=== PATIENT | female | born 1995 | race Caucasian/White ===

== ENCOUNTER 2017-03-12 00:02 | Emergency (ER) | payer BC ==
[2017-03-12] MEDS ORDERED: LIDOCAINE 2% VISCOUS SOLN 20 ML UDCUP PO ONE (00:49)
[2017-03-12] MEDS ORDERED: METOCLOPRAMIDE HCL ORAL SOLN 10 MG/10 ML UDCUP PO ONE (00:49)
[2017-03-12] MEDS ORDERED: MAG HYDROX/AL HYDROX/SIMETH SUSP 30 ML UDCUP PO ONE (00:49)
--- NOTE | 2017-03-12 00:50 | ER Document Report ---
ED GI/ - General Mode of Arrival: Ambulatory Information source: Patient TRAVEL OUTSIDE OF THE [place] IN LAST 30 DAYS: No - HPI Patient complains to provider of: Abdominal pain Similar symptoms previously: No Recently seen / treated by doctor: No - General Chief Complaint: Abdominal Pain Stated Complaint: ABDOMINAL PAIN Time Seen by Provider: 03/12/17 00:36 - HPI Notes: Patient is a 21 year old female presenting to the emergency department for upper abdominal pain. Patient states that her pain has been onset x4 days. Patient states that her pain is achy and is exacerbated with laying down and with drinking milk. Patient states that she hasn't taken any anti-acids or other medications to help relieve her symptoms. Patient denies any nausea, vomiting, or diarrhea. Patient states she has bad anxiety and does not like taking medications. (ADALID HWANG) - Related Data Allergies/Adverse Reactions: clindamycin Allergy (Verified 03/12/17 00:12) Iodinated Contrast- Oral and IV Dye Allergy (Verified 03/12/17 00:12) latex Allergy (Verified 03/12/17 00:12) ondansetron [From Zofran (as hydrochloride)] Allergy (Verified 03/12/17 00:12) Penicillins Allergy (Verified 03/12/17 00:12) prednisone Allergy (Verified 03/12/17 00:12) sulfamethoxazole [From Bactrim] Allergy (Verified 03/12/17 00:12) trimethoprim [From Bactrim] Allergy (Verified 03/12/17 00:12) Past Medical History - General Information source: Patient - Social History Smoking Status: Current Every Day Smoker Chew tobacco use (# tins/day): No Smoking Education Provided: No Frequency of alcohol use: None Drug Abuse: None Family History: None Patient has suicidal ideation: No Patient has homicidal ideation: No - Medical History Medical History: Negative Past Surgical History: Reports: Hx Cholecystectomy - Jul 2015 Review of Systems - Review of Systems Constitutional: No symptoms reported EENT: No symptoms reported Cardiovascular: No symptoms reported Respiratory: No symptoms reported Gastrointestinal: See HPI, Abdominal pain Genitourinary: No symptoms reported Female Genitourinary: No symptoms reported Musculoskeletal: No symptoms reported Skin: No symptoms reported Hematologic/Lymphatic: No symptoms reported Neurological/Psychological: No symptoms reported -: Yes All other systems reviewed and negative Physical Exam - Vital signs Interpretation: Normal - Vital signs Vitals: Temp Pulse Resp BP Pulse Ox 98.1 F 104 H 18 121/82 96 03/12/17 00:08 03/12/17 00:08 03/12/17 00:08 03/12/17 00:08 03/12/17 00:08 - Notes Notes: GENERAL: Alert, interacts well. No acute distress. HEAD: Normocephalic, atraumatic. EYES: Pupils equal, round, and reactive to light. Extraocular movements intact. ENT: Oral mucosa moist, tongue midline. NECK: Full range of motion. Supple. Trachea midline. LUNGS: Clear to auscultation bilaterally, no wheezes, rales, or rhonchi. No respiratory distress. HEART: Regular rate and rhythm. No murmurs, gallops, or rubs. ABDOMEN: Soft, mild epigastric and upper quadrant (right and left) abdominal tenderness with palpation. Non-distended. Bowel sounds present in all 4 quadrants. EXTREMITIES: Moves all 4 extremities spontaneously. No edema. No cyanosis. NEUROLOGICAL: Alert and oriented x3. Normal speech. PSYCH: Normal affect, normal mood. SKIN: Warm, dry, normal turgor. No rashes or lesions noted. (ADALID HWANG) Course - Re-evaluation Re-evalutation: 03/12/17 02:21 Symptoms relieved with GI cocktail, consistent with GERD, no evidence of pancreatitis, patient is status post cholecystectomy over a year and a half ago , no suspicion for retained stone as this was over a year and a half ago. Patient will be prescribed Zantac and discharged home. (BETY CONTI) - Vital Signs Vital signs: Temp Pulse Resp BP Pulse Ox 98.1 F 104 H 18 121/82 96 03/12/17 00:08 03/12/17 00:08 03/12/17 00:08 03/12/17 00:08 03/12/17 00:08 Discharge - Discharge Clinical Impression: Tobacco abuse, Tobacco abuse counseling GERD (gastroesophageal reflux disease) Qualifiers: Esophagitis presence: without esophagitis Qualified Code(s): K21.9 - Gastro- esophageal reflux disease without esophagitis Condition: Stable Disposition: HOME, SELF-CARE Additional Instructions: Reflux Disease (GERD) Gastro-Esophageal Reflux Disease (GERD) is caused by stomach acid refluxing back up into the esophagus. The valve at the end of the esophagus may be weak. This is common in persons with a hiatal hernia. GERD symptoms can include indigestion, chest pain, heartburn, or food "sticking." Certain foods, alcohol, and aspirin can make GERD worse. Treatment depends on the severity. Usually, antacids or acid-suppressing medicines are used. When the esophagus is acutely inflamed, the physician will often prescribe membrane-protective drugs such as Carafate. Some patients benefit from medication such as Reglan that tightens the valve at the top of the stomach. Avoid those foods that bring on your symptoms. For many people, these foods are coffee, chocolate, onions, garlic, and carbonated drinks. Don't use alcohol, aspirin, caffeine, or tobacco. Don't eat late at night -- within 4 hours of bedtime. Don't over-eat. If necessary, elevate the head of your bed about 4 inches so that stomach acid will not roll up into your esophagus. Call the doctor if you develop severe chest pain, inability to swallow fluids, fever, or worsening symptoms. Prescriptions: Ranitidine HCl [Zantac 75 mg Tablet] 75 mg PO BID #30 tablet Forms: Smoking Cessation Education Scribe Attestation: 03/12/17 03:05 I personally performed the services described in the documentation, reviewed and edited the documentation which was dictated to the scribe in my presence, and it accurately records my words and actions. (BETY CONTI) Scribe Documentation - Scribe Written by Javier:: Javier Boles, 03/12/2017 2:35 acting as scribe for :: Bk
[2017-03-12 03:24] VITALS: BP 112/72
== END 2017-03-12 02:55 | disposition home or self-care (01) ==
LOC: ER 00:02
DX: K21.9 Gastro-esophageal reflux disease without esophagitis (principal); R10.10 Upper abdominal pain, unspecified; F17.200 Nicotine dependence, unspecified, uncomplicated; Z88.3 Allergy status to other anti-infective agents; Z88.0 Allergy status to penicillin; Z91.040 Latex allergy status; Z90.49 Acquired absence of other specified parts of digestive tract
CPT/HCPCS: 99283